=== PATIENT | male | born 1950 | race African-American/Black ===

== ENCOUNTER 2019-10-11 19:55 | Emergency (ER) | payer OTHER, MEDICARE, SELFPAY ==
[2019-10-11 19:57] VITALS: BP 159/86; PULSE 100; RESP 18; TEMP 36.7; O2SAT 95; BMI 38.0
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
[2019-10-11] MEDS: Naproxen 500 MG Tablet PO (21:33)
[2019-10-11] MEDS: cycloBENZAPRine HCl 10 MG Tablet PO (21:33)
== END 2019-10-11 23:05 | disposition home or self-care (01) ==
PROVIDERS: Emergency Provider Emergency Medicine
DX: S39.012A Strain of muscle, fascia and tendon of lower back, initial encounter (principal); V63.5XXA Driver of heavy transport vehicle injured in collision with car, pick-up truck or van in traffic accident, initial encounter
CPT/HCPCS: 99285